=== PATIENT | female | born 1995 | race African-American/Black ===

== ENCOUNTER 2016-12-09 20:02 | Emergency (ER) | payer SELFPAY ==
[~2016-12-09] VITALS: Ht 152.4 cm; Wt 72.6 kg
[2016-12-09] MEDS ORDERED: LIDO:MAALOX:DONNATAL 1:1:1 15 ML SINGLE DOSE SWSW ONE (21:00)
[2016-12-09] MEDS ORDERED: ONDANSETRON PF 4 MG/2 ML VIAL. IV ONE (21:00)
[2016-12-09] MEDS ORDERED: IV NORMAL SALINE 1000ML BAG 1,000 ML IV ONE (21:00)
[2016-12-09 21:03] LABS: BASO # 0.1 x10^3/uL (0.0-0.2); BASO % 1 % (0-3); EOS % 2 % (0-3); HEMATOCRIT 37.5 % (36.0-47.0); HEMOGLOBIN 12.5 g/dL (12.0-15.5); LYMPH # 4.1 x10^3/uL (1.0-4.8); LYMPH % 32 % (24-48); MEAN CORPUSCULAR HEMOGLOBIN 24 pg (25-35); MEAN CORPUSCULAR HGB CONC 33 g/dL (31-37); MEAN CORPUSCULAR VOLUME 73 fL (79-100); MONO % 6 % (0-9); NEUT % 60 % (31-73); PLATELET COUNT 434 x10^3/uL (140-400); RED BLOOD COUNT 5.16 x10^6/uL (3.50-5.40); RED CELL DISTRIBUTION WIDTH 15.9 % (11.5-14.5); WHITE BLOOD COUNT 13.1 x10^3/uL (4.0-11.0)
[2016-12-09 21:04] LABS: BILIRUBIN,URINE NEGATIVE (NEG); GLUCOSE,URINE NEGATIVE (NEG); NITRITE,URINE NEGATIVE (NEG); PROTEIN,URINE NEGATIVE (NEG-TRACE); UROBILINOGEN,URINE 0.2 mg/dL (0.2 mg/dL)
[2016-12-09 21:11] LABS: BARBITURATES NEG (NEG); BENZODIAZEPINES NEG (NEG); CANNABINOIDS NEG (NEG); COCAINE NEG (NEG); METHADONE NEG (NEG); OPIATES NEG (NEG); PHENCYCLIDINE NEG (NEG); RBC,URINE 0 /HPF (0-2)
[2016-12-09 21:12] LABS: BACTERIA,URINE MODERATE /HPF (0-FEW); SQUAMOUS EPITHELIAL CELL,UR MANY /LPF
[2016-12-09 21:14] LABS: INR 1.1 (0.8-1.1); PROTHROMBIN TIME PATIENT 13.3 SEC (11.7-14.0)
[2016-12-09 21:25] LABS: CALCIUM 9.8 mg/dL (8.5-10.1); CREATININE 0.7 mg/dL (0.6-1.0); GFR 129.1; POTASSIUM 3.4 mmol/L (3.5-5.1)
[2016-12-09 21:29] LABS: ALBUMIN 3.9 g/dL (3.4-5.0); ALBUMIN/GLOBULIN RATIO 0.9 (1.0-1.7); MAGNESIUM 1.9 mg/dL (1.8-2.4); TOTAL BILIRUBIN 0.3 mg/dL (0.2-1.0); TOTAL PROTEIN 8.3 g/dL (6.4-8.2)
--- NOTE | 2016-12-09 21:45 | PHYS DOC ---
Past Medical History Past Medical History: No Pertinent History Alcohol Use: None Drug Use: None Adult General Chief Complaint Chief Complaint: DIZZY/LIGHT HEADED [facility] HPI Patient is a 21 year old female presenting to the emergency department for evaluation of dizziness and nausea vomiting chest pain. She says the dizziness is that she feels as if she may pass out and that the chest pain is burning in the center of her chest that started after eating sausage and pancakes. She says it is getting better but she still has some chest pain. She appears quite anxious that she is tachycardic and hyperventilating. She denies any prior cardiac history and no prior DVT or PE. She denies smoking alcohol or drug abuse. She is in no obvious distress with normal vital signs other than her tachycardia. Review of Systems Review of Systems Constitutional: Denies fever or chills [] Respiratory: Denies cough. + shortness of breath [] Cardiovascular: No additional information not addressed in HPI [] GI: Denies abdominal pain. + nausea, vomiting. No bloody stools or diarrhea [] : Denies dysuria or hematuria [] Musculoskeletal: Denies back pain or joint pain [] Integument: Denies rash or skin lesions [] Neurologic: Denies headache, focal weakness or sensory changes [] Current Medications Current Medications Current Medications Medications (Trade) Dose Ordered Sig/[facility] Start Time Stop Time Status Last Admin Dose Admin Multi-Ingredient Mouthwash/Gargle (Gi Cocktail Single Dose) 15 ml 1X ONCE 12/09/16 21:00 12/09/16 21:01 DC 12/09/16 21:05 15 ML Ondansetron HCl (Zofran) 4 mg 1X ONCE 12/09/16 21:00 12/09/16 21:01 DC 12/09/16 21:05 4 MG Sodium Chloride 1,000 ml @ 1,000 mls/hr 1X ONCE 12/09/16 21:00 12/09/16 21:59 DC 12/09/16 21:05 1,000 MLS/HR Allergies Allergies Allergies Coded Allergies Type Severity Reaction Last Updated Verified No Known Drug Allergies 12/09/16 No Physical Exam Physical Exam Constitutional: Well developed, well nourished, no acute distress, non-toxic appearance. [] HENT: Normocephalic, atraumatic, bilateral external ears normal, oropharynx moist, no oral exudates, nose normal. [] Eyes: PERRLA, EOMI, conjunctiva normal, no discharge. [] Neck: Normal range of motion, no tenderness, supple, no stridor. [] Cardiovascular:Heart rate regular rhythm but tachycardic, no murmur [] Lungs & Thorax: Bilateral breath sounds clear to auscultation [] Abdomen: Bowel sounds normal, soft, no tenderness, no masses, no pulsatile masses. [] Skin: Warm, dry, no erythema, no rash. [] Back: No tenderness, no CVA tenderness. [] Extremities: No tenderness, no cyanosis, no clubbing, ROM intact, no edema. [] Neurologic: Alert and oriented X 3, normal motor function, normal sensory function, no focal deficits noted. [] Current Patient Data Vital Signs Vital Signs Date Time Temp Pulse Resp B/P (MAP) Pulse Ox O2 Delivery O2 Flow Rate FiO2 12/09/16 20:24 98.3 136 21 111/65 (80) 100 Room Air 98.3 Lab Values Laboratory Tests Test 12/09/16 19:45 12/09/16 20:22 12/09/16 20:35 POC Urine HCG, Qualitative Hcg negative (Negative) White Blood Count 13.1 x10^3/uL (4.0-11.0) H Red Blood Count 5.16 x10^6/uL (3.50-5.40) Hemoglobin 12.5 g/dL (12.0-15.5) Hematocrit 37.5 % (36.0-47.0) Mean Corpuscular Volume 73 fL (79-100) L Mean Corpuscular Hemoglobin 24 pg (25-35) L Mean Corpuscular Hemoglobin Concent 33 g/dL (31-37) Red Cell Distribution Width 15.9 % (11.5-14.5) H Platelet Count 434 x10^3/uL (140-400) H Neutrophils (%) (Auto) 60 % (31-73) Lymphocytes (%) (Auto) 32 % (24-48) Monocytes (%) (Auto) 6 % (0-9) Eosinophils (%) (Auto) 2 % (0-3) Basophils (%) (Auto) 1 % (0-3) Neutrophils # (Auto) 7.8 x10^3uL (1.8-7.7) H Lymphocytes # (Auto) 4.1 x10^3/uL (1.0-4.8) Monocytes # (Auto) 0.8 x10^3/uL (0.0-1.1) Eosinophils # (Auto) 0.2 x10^3/uL (0.0-0.7) Basophils # (Auto) 0.1 x10^3/uL (0.0-0.2) Prothrombin Time 13.3 SEC (11.7-14.0) Prothrombin Time INR 1.1 (0.8-1.1) PTT 33 SEC (24-38) D-Dimer (Linsey) < 0.27 ug/mlFEU Sodium Level 137 mmol/L (136-145) Potassium Level 3.4 mmol/L (3.5-5.1) L Chloride Level 102 mmol/L (98-107) Carbon Dioxide Level 24 mmol/L (21-32) Anion Gap 11 (6-14) Blood Urea Nitrogen 7 mg/dL (7-20) Creatinine 0.7 mg/dL (0.6-1.0) Estimated GFR (Cockcroft-Gault) 129.1 BUN/Creatinine Ratio 10 (6-20) Glucose Level 98 mg/dL (70-99) Calcium Level 9.8 mg/dL (8.5-10.1) Magnesium Level 1.9 mg/dL (1.8-2.4) Total Bilirubin 0.3 mg/dL (0.2-1.0) Aspartate Amino Transferase (AST) 16 U/L (15-37) Alanine Aminotransferase (ALT) 25 U/L (14-59) Alkaline Phosphatase 55 U/L (46-116) Creatine Kinase 93 U/L (26-192) Troponin I Quantitative < 0.017 ng/mL (0.000-0.055) HU-Xqx-P-Type Natriuretic Peptide 21 pg/mL (0-124) Total Protein 8.3 g/dL (6.4-8.2) H Albumin 3.9 g/dL (3.4-5.0) Albumin/Globulin Ratio 0.9 (1.0-1.7) L Lipase 126 U/L (73-393) Thyroid Stimulating Hormone (TSH) 2.700 uIU/mL (0.358-3.74) Ethyl Alcohol Level < 10 mg/dL (0-10) Urine Collection Type Unknown Urine Color Straw Urine Clarity Cloudy Urine pH 7.0 Urine Specific [place] 1.010 Urine Protein Negative mg/dL (NEG-TRACE) Urine Glucose (UA) Negative mg/dL (NEG) Urine Ketones (Stick) Negative mg/dL (NEG) Urine Blood Negative (NEG) Urine Nitrite Negative (NEG) Urine Bilirubin Negative (NEG) Urine Urobilinogen Dipstick 0.2 mg/dL (0.2 mg/dL) Urine Leukocyte Esterase Moderate (NEG) Urine RBC 0 /HPF (0-2) Urine WBC 5-10 /HPF (0-4) Urine Squamous Epithelial Cells Many /LPF Urine Bacteria Moderate /HPF (0-FEW) Urine Opiates Screen Neg (NEG) Urine Methadone Screen Neg (NEG) Urine Barbiturates Neg (NEG) Urine Phencyclidine Screen Neg (NEG) Urine Amphetamine/Methamphetamine Neg (NEG) Urine Benzodiazepines Screen Neg (NEG) Urine Cocaine Screen Neg (NEG) Urine Cannabinoids Screen Neg (NEG) Urine Ethyl Alcohol Neg (NEG) Laboratory Tests 12/09/16 20:22 Laboratory Tests 12/09/16 20:22 EKG EKG Sinus rhythm at 97 beats per minutes with normal axis no deviation no obvious ST elevation or depression and normal T waves. Radiology/Procedures Radiology/Procedures Normal mediastinum and normal heart size no obvious free air pneumothorax or opacity Course & Med Decision Making Course & Med Decision Making Patient will get screening labs treat symptoms and then reassess. Patient is feeling much better after symptomatically treatment here and she no longer has chest pain. She has a heart score equal to 0 and her EKG is completely normal. Given patient appears well with normal vital signs benign physical exam and workup she'll be discharged with supportive treatment and told to follow with a primary care provider and come back to the ER sooner with any worsening pain fevers vomiting or other general concerns. Patient verbalized understanding of the above instructions. Dragon Disclaimer Dragon Disclaimer This electronic medical record was generated, in whole or in part, using a voice recognition dictation system. Departure Departure Impression: Primary Impression: Chest pain Additional Impression: Nausea & vomiting Disposition: 01 HOME, SELF-CARE Condition: GOOD Referrals: URBANO SAENZ MD Patient Instructions: Gastritis, Adult Additional Instructions: Take Prilosec daily for her symptoms and he can use Tums and Maalox for breakthrough pain. Scripts Omeprazole Magnesium (PRILOSEC OTC) 20 Mg Tablet.dr 1 TAB PO DAILY, #30 TAB 2 Refills Prov: ANGEL RODRIGUEZ DO 12/09/16 Problem Qualifiers Primary Impression: Chest pain Chest pain type: unspecified Qualified Codes: R07.9 - Chest pain, unspecified ANGEL RODRIGUEZ DO Dec 09, 2016 21:45
[2016-12-09] MEDS ORDERED: OMEP20TA63 PO (22:22)
[2016-12-09 22:30] VITALS: BP 164/62
--- NOTE | 2016-12-10 07:37 | RAD ---
Portable chest, 12/09/2016: History: Chest pain The heart size and pulmonary vascularity are normal. A hazy density at the right cardiophrenic angle level is probably due to a prominent epicardial fat pad. No acute infiltrate is seen. There is no evidence of pleural fluid. IMPRESSION: No acute cardiopulmonary abnormality is detected.
--- NOTE | 2016-12-10 11:15 | EKG ---
[facility] [address] [place] [address] Test Date: 2016-12-09 Test Time: 20:47:20 Pat Name: AVILA LAWRENCE Department: Room: Gender: F [employer] Electric[employer]: : 1995 Requested By: ANGEL RODRIGUEZ Order Number: [id number] Reading MD: Tom Puentes Measurements Intervals [place] Rate: 97 P: 52 WA: 132 QRS: 60 QRSD: 70 T: 6 QT: 328 QTc: 421 Interpretive Statements SINUS RHYTHM Electronically Signed On 12-10-2016 11:15:01 CDT by Tom Puentes
== END 2016-12-09 22:32 | disposition home or self-care (01) ==
LOC: ER 20:02
DX: R07.9 Chest pain, unspecified (principal); R42 Dizziness and giddiness; R11.2 Nausea with vomiting, unspecified
CPT/HCPCS: 36415; 71010; 80053; 80305; 81001; 81025; 82550; 83690; 83735; 83880; 84443; 84484; 85027; 85379; 85610; 85730; 87086; 93005; 96361; 96374; 99285; J2405; J7030; G0480; G0481

== ENCOUNTER 2018-09-16 12:00 | Emergency (ER) | payer SELFPAY ==
[~2018-09-16] VITALS: Ht 152.4 cm; Wt 68.0 kg
[~2018-09-16 12:00] MED LIST: OMEP20TA63 PO
[2018-09-16 12:05] VITALS: BP 119/57
--- NOTE | 2018-09-16 13:44 | PHYS DOC ---
Past Medical History Past Medical History: No Pertinent History Alcohol Use: None Drug Use: None Adult General Chief Complaint Chief Complaint: BACK PAIN - NO INJURY HPI HPI Patient is a 23 year old female who presents to the emergency room with complaints of sore throat for the last week. Patient also complains of backaches for the last two weeks. She denies any known injury, Review of Systems Review of Systems Constitutional: Denies fever or chills [] Eyes: Denies change in visual acuity, redness, or eye pain [] HENT: denies ear pain, reports nasal congestion sore throat Respiratory: Denies cough or shortness of breath [] Cardiovascular: No additional information not addressed in HPI [] GI: Denies abdominal pain, nausea, vomiting, or diarrhea [] : Denies dysuria or hematuria [] Musculoskeletal: reports generalized back pain denies any injury Integument: Denies rash or skin lesions [] Neurologic: Denies headache, focal weakness or sensory changes [] Current Medications Current Medications Current Medications Medications (Trade) Dose Ordered Sig/David Start Time Stop Time Status Last Admin Dose Admin Dexamethasone Sodium Phosphate (Decadron) 10 mg 1X ONCE 09/16/18 14:30 09/16/18 14:30 DC 09/16/18 14:08 10 MG Allergies Allergies Allergies Coded Allergies Type Severity Reaction Last Updated Verified No Known Drug Allergies 12/09/16 No Physical Exam Physical Exam Constitutional: Well developed, well nourished, no acute distress, non-toxic appearance. [] HENT: Normocephalic, atraumatic, bilateral external ears normal, oropharynx mo ist, 2+ tonsils bilat, erythema posterior pharynx, foul odor noted to breath, no oral exudates, nose normal. [] Eyes: conjunctiva normal, no discharge. [] Neck: Normal range of motion, no tenderness, supple, no stridor. [] Cardiovascular:Heart rate regular rhythm Lungs & Thorax: Bilateral breath sounds clear to auscultation, retractions [] Skin: Warm, dry, no erythema, no rash. [] Back: No bony TTP Extremities: No cyanosis, ROM intact, no edema, no deformities. Neurologic: Alert and oriented X 3, no focal deficits noted. [] Psychologic: Affect normal, judgement normal, mood normal. [] Current Patient Data Vital Signs Lab Values Laboratory Tests Test 09/16/18 12:09 Group A Streptococcus Rapid Negative (NEGATIVE) Microbiology 09/16/18 Throat Culture - Final, Complete 09/16/18 - Final, Complete 09/16/18 - Final, Complete EKG EKG [] Radiology/Procedures Radiology/Procedures [] Course & Med Decision Making Course & Med Decision Making Pertinent Labs and Imaging studies reviewed. (See chart for details) [] Dragon Disclaimer Dragon Disclaimer This electronic medical record was generated, in whole or in part, using a voice recognition dictation system. Departure Departure Impression: Primary Impression: URI with cough and congestion Additional Impression: Pharyngitis Disposition: HOME, SELF-CARE Condition: STABLE Referrals: NO PCP (PCP) Patient Instructions: Upper Respiratory Infection, Adult, [id number] Additional Instructions: Warm salt water gargles as needed for throat discomfort. Recommend use of a Cool mist humidifier in room at bedtime. Alternate Tylenol or ibuprofen as needed for pain/fever. Increase clear fluids. Avoid airway triggers such as smoke, fragrance, dust, and pollen. May take [id number] cough suppressants as needed. Follow-up with your primary care doctor symptoms persist, return to the ER symptoms worsen. Problem Qualifiers Additional Impression: Pharyngitis Pharyngitis/tonsillitis etiology: unspecified etiology Qualified Codes: J02.9 - Acute pharyngitis, unspecified IVORY CHAIDEZ APRN Sep 16, 2018 13:44
[2018-09-16] MEDS ORDERED: DEXAMETHASONE SOD PHOS 20 MG/5 ML VIAL. PO ONE (14:30)
== END 2018-09-16 14:10 | disposition home or self-care (01) ==
LOC: ER 12:00
DX: J02.9 Acute pharyngitis, unspecified (principal)
CPT/HCPCS: 87070; 87880; 99283; J1100

== ENCOUNTER 2018-12-09 21:25 | Emergency (ER) | payer SELFPAY ==
[~2018-12-09] VITALS: Ht 149.9 cm; Wt 75.7 kg
[2018-12-09 21:35] VITALS: BP 112/69
[2018-12-09 21:44] LABS: BASO # 0.1 x10^3/uL (0.0-0.2); BASO % 1 % (0-3); EOS # 0.1 x10^3/uL (0.0-0.7); EOS % 1 % (0-3); HEMATOCRIT 35.8 % (36.0-47.0); HEMOGLOBIN 11.5 g/dL (12.0-15.5); LYMPH # 2.7 x10^3/uL (1.0-4.8); LYMPH % 24 % (24-48); MEAN CORPUSCULAR HEMOGLOBIN 24 pg (25-35); MEAN CORPUSCULAR HGB CONC 32 g/dL (31-37); MEAN CORPUSCULAR VOLUME 73 fL (79-100); MONO # 0.9 x10^3/uL (0.0-1.1); MONO % 8 % (0-9); NEUT # 7.7 x10^3uL (1.8-7.7); NEUT % 67 % (31-73); PLATELET COUNT 432 x10^3/uL (140-400); RED BLOOD COUNT 4.87 x10^6/uL (3.50-5.40); RED CELL DISTRIBUTION WIDTH 15.5 % (11.5-14.5); WHITE BLOOD COUNT 11.6 x10^3/uL (4.0-11.0)
--- NOTE | 2018-12-09 21:44 | PHYS DOC ---
Past Medical History Past Medical History: No Pertinent History Past Surgical History: No Surgical History Additional Information: Nonsmoker Alcohol Use: None Drug Use: None Adult General Chief Complaint Chief Complaint: ABDOMINAL PAIN HPI HPI 23 y/o female presents with report of diffuse abdominal pain with associated nausea and vomiting which started today. Denies fever/chills. Denies known sick contacts. Denies dysuria. Reports "unsure" if she might be . Reports last menstrual period was last week of October. Denies dysuria or hematuria. Review of Systems Review of Systems Constitutional: Denies fever or chills Eyes: Denies redness or eye pain HENT: Denies nasal congestion or sore throat Respiratory: Denies cough or shortness of breath Cardiovascular: Denies chest pain or palpitations GI: Reports abdominal pain, nausea, and vomiting : Denies dysuria or hematuria Musculoskeletal: Denies back pain or joint pain Integument: Denies rash or skin lesions Neurologic: Denies headache, focal weakness or sensory changes Complete systems were reviewed and found to be within normal limits, except as documented in this note. Current Medications Current Medications Current Medications Medications (Trade) Dose Ordered Sig/David Start Time Stop Time Status Last Admin Dose Admin Famotidine (Pepcid Vial) 20 mg 1X ONCE 12/09/18 21:45 12/09/18 21:46 DC 12/09/18 21:51 20 MG Info (CONTRAST GIVEN -- Rx MONITORING) 1 each PRN DAILY PRN 12/09/18 22:30 12/11/18 22:29 Iohexol (Omnipaque 300 Mg/ml) 75 ml 1X ONCE 12/09/18 22:30 12/09/18 22:31 DC 12/09/18 22:21 75 ML Ketorolac Tromethamine (Toradol 15mg Vial) 15 mg 1X ONCE 12/09/18 21:45 12/09/18 21:46 DC 12/09/18 21:52 15 MG Ondansetron HCl (Zofran) 4 mg 1X ONCE 12/09/18 21:45 12/09/18 21:46 DC 12/09/18 21:51 4 MG Sodium Chloride 1,000 ml @ 1,000 mls/hr 1X ONCE 12/09/18 21:45 12/09/18 22:44 DC 12/09/18 21:51 1,000 MLS/HR Allergies Allergies Allergies Coded Allergies Type Severity Reaction Last Updated Verified No Known Drug Allergies 12/09/16 No Physical Exam Physical Exam Constitutional: Well developed, well nourished, no acute distress, non-toxic ap pearance HENT: Normocephalic, atraumatic, oropharynx moist Eyes: Conjunctiva normal, no discharge Neck: Normal range of motion, no tenderness, supple Cardiovascular: Heart rate normal, regular rhythm Lungs & Thorax: Bilateral breath sounds clear to auscultation, no wheezing Abdomen: Soft, diffuse abdominal pain, voluntary guarding Skin: Warm, dry, no erythema, no rash Back: No tenderness, no CVA tenderness Extremities: No tenderness, ROM intact, no edema Neurologic: Alert and oriented X 3, no focal deficits noted Psychologic: Affect normal, judgement normal Current Patient Data Vital Signs Vital Signs Date Time Temp Pulse Resp B/P (MAP) Pulse Ox O2 Delivery O2 Flow Rate FiO2 12/09/18 21:35 98.2 110 22 112/69 (83) 100 Room Air 98.2 Lab Values Laboratory Tests Test 12/09/18 21:35 12/09/18 21:40 White Blood Count 11.6 x10^3/uL (4.0-11.0) H Red Blood Count 4.87 x10^6/uL (3.50-5.40) Hemoglobin 11.5 g/dL (12.0-15.5) L Hematocrit 35.8 % (36.0-47.0) L Mean Corpuscular Volume 73 fL (79-100) L Mean Corpuscular Hemoglobin 24 pg (25-35) L Mean Corpuscular Hemoglobin Concent 32 g/dL (31-37) Red Cell Distribution Width 15.5 % (11.5-14.5) H Platelet Count 432 x10^3/uL (140-400) H Neutrophils (%) (Auto) 67 % (31-73) Lymphocytes (%) (Auto) 24 % (24-48) Monocytes (%) (Auto) 8 % (0-9) Eosinophils (%) (Auto) 1 % (0-3) Basophils (%) (Auto) 1 % (0-3) Neutrophils # (Auto) 7.7 x10^3uL (1.8-7.7) Lymphocytes # (Auto) 2.7 x10^3/uL (1.0-4.8) Monocytes # (Auto) 0.9 x10^3/uL (0.0-1.1) Eosinophils # (Auto) 0.1 x10^3/uL (0.0-0.7) Basophils # (Auto) 0.1 x10^3/uL (0.0-0.2) Urine Collection Type Unknown Urine Color Yellow Urine Clarity Clear Urine pH 7.5 Urine Specific [place] 1.015 Urine Protein Negative mg/dL (NEG-TRACE) Urine Glucose (UA) Negative mg/dL (NEG) Urine Ketones (Stick) Negative mg/dL (NEG) Urine Blood Negative (NEG) Urine Nitrite Negative (NEG) Urine Bilirubin Negative (NEG) Urine Urobilinogen Dipstick 1.0 mg/dL (0.2 mg/dL) Urine Leukocyte Esterase Small (NEG) Urine RBC 0 /HPF (0-2) Urine WBC 5-10 /HPF (0-4) Urine Squamous Epithelial Cells Many /LPF Urine Bacteria Moderate /HPF (0-FEW) Urine Mucus Marked /LPF Urine Yeast Present /HPF Sodium Level 140 mmol/L (136-145) Potassium Level 3.8 mmol/L (3.5-5.1) Chloride Level 103 mmol/L (98-107) Carbon Dioxide Level 26 mmol/L (21-32) Anion Gap 11 (6-14) Blood Urea Nitrogen 8 mg/dL (7-20) Creatinine 0.7 mg/dL (0.6-1.0) Estimated GFR (Cockcroft-Gault) 126.6 BUN/Creatinine Ratio 11 (6-20) Glucose Level 107 mg/dL (70-99) H Calcium Level 9.0 mg/dL (8.5-10.1) Magnesium Level 2.0 mg/dL (1.8-2.4) Total Bilirubin 0.6 mg/dL (0.2-1.0) Aspartate Amino Transferase (AST) 22 U/L (15-37) Alanine Aminotransferase (ALT) 25 U/L (14-59) Alkaline Phosphatase 70 U/L (46-116) Total Protein 7.7 g/dL (6.4-8.2) Albumin 4.0 g/dL (3.4-5.0) Albumin/Globulin Ratio 1.1 (1.0-1.7) Lipase 125 U/L (73-393) POC Urine HCG, Qualitative Hcg negative (Negative) Laboratory Tests 12/09/18 21:35 Laboratory Tests 12/09/18 21:35 EKG EKG [] Radiology/Procedures Radiology/Procedures PROCEDURE: CT ABD PELV W/ IV CONTRST ONLY CT ABD PELV W/ IV CONTRST ONLY Indication: Abdominal pain, nausea and vomiting Technique: Postcontrast CT imaging was performed of the abdomen pelvis, multiplanar reconstruction images submitted. One or more of the following individualized dose reduction techniques were utilized for this examination: 1. Automated exposure control 2. Adjustment of the mA and/or kV according to patient size 3. Use of iterative reconstruction technique. Comparison: None Findings: There is no abnormality of the limited visualized lung bases. No focal abnormality is identified of the liver or spleen. Both kidneys enhance, no hydronephrosis. There is no adrenal nodularity. Gallbladder is present without obvious intraluminal abnormality by CT. There is mild dependent free fluid in the pelvis. Accurate evaluation of bowel is limited without oral contrast. Appendix cannot be confidently identified. No free air is identified. Bowel is not significantly dilated. There is small umbilical fascial defect with small bowel at the posterior margin. There is a hypodense lesion of the left adnexa about 2.1 cm, some other heterogeneity of the parametrial regions. There may be some fluid in the endometrial cavity. IMPRESSION: 1. Appendix cannot be confidently identified to confidently exclude acute appendicitis by imaging. There is mild nonspecific free fluid in the pelvis. There is a hypodense lesion of the left adnexa probably a cyst. There is another nonspecific heterogeneity of the parametrial regions. There is also likely some fluid in the endometrial cavity. Electronically signed by: Franklyn Delatorre MD (12/09/2018 11:42 PM) [facility] Course & Med Decision Making Course & Med Decision Making Pertinent Labs and Imaging studies reviewed. (See chart for details) Patient present with diffuse abdominal pain with associated nausea and vomiting. Voluntary guarding noted. IVF hydration given. Labs obtained and posted to chart. UA with signs of contamination. Yeast noted. Diflucan provided. CT abd/pelvis without acute process. Appendix not definitively identified. Patient does not have clinical signs of appendicitis. Pain/nausea addressed with interval improvement.. Patient stable for discharge with outpatient follow-up with PCP. Discussed findings and plan with patient and family, who acknowledge understanding and agreement. Liana Disclaimer Dragon Disclaimer This electronic medical record was generated, in whole or in part, using a voice recognition dictation system. Departure Departure Impression: Primary Impression: Abdominal pain Additional Impressions: Nausea & vomiting Yeast cystitis Disposition: 01 HOME, SELF-CARE Condition: STABLE Referrals: NO PCP (PCP) Patient Instructions: Abdominal Pain (Nonspecific), Mattie Infection, Adult, Nausea and Vomiting, [id number] Scripts Hyoscyamine Sulfate (LEVSIN-SL) 0.125 Mg Tab.subl 1-2 TAB SL PRN Q4HRS PRN for PAIN, #20 TAB Prov: LAZARO CARPENTER DO 12/10/18 Famotidine (PEPCID) 20 Mg Tablet 20 MG PO BID, #14 TAB Prov: LAZARO CARPENTER DO 12/10/18 Ondansetron (ONDANSETRON ODT) 4 Mg Tab.rapdis 1 TAB PO PRN Q6-8HRS PRN for NAUSEA, #16 TAB Prov: LAZARO CARPETNER DO 12/10/18 Problem Qualifiers Primary Impression: Abdominal pain Abdominal location: generalized Qualified Codes: R10.84 - Generalized abdominal pain Additional Impressions: Nausea & vomiting Vomiting type: unspecified Vomiting Intractability: non-intractable Qualified Codes: R11.2 - Nausea with vomiting, unspecified LAZARO CARPENTER DO Dec 09, 2018 21:44
[2018-12-09] MEDS ORDERED: FAMOTIDINE 20 MG/2 ML VIAL IVP ONE (21:45)
[2018-12-09] MEDS ORDERED: IV NORMAL SALINE 1000ML BAG 1,000 ML IV ONE (21:45)
[2018-12-09] MEDS ORDERED: ONDANSETRON PF 4 MG/2 ML VIAL. IV ONE (21:45)
[2018-12-09] MEDS ORDERED: KETOROLAC 15 MG/ML VIAL. IV ONE (21:45)
[2018-12-09 21:49] LABS: BILIRUBIN,URINE NEGATIVE (NEG); CLARITY,URINE CLEAR; COLOR,URINE YELLOW; NITRITE,URINE NEGATIVE (NEG); PH,URINE 7.5; PROTEIN,URINE NEGATIVE (NEG-TRACE)
[2018-12-09 21:56] LABS: CREATININE 0.7 mg/dL (0.6-1.0); GFR 126.6; POTASSIUM 3.8 mmol/L (3.5-5.1)
[2018-12-09 21:59] LABS: BACTERIA,URINE MODERATE /HPF (0-FEW); RBC,URINE 0 /HPF (0-2); SQUAMOUS EPITHELIAL CELL,UR MANY /LPF
[2018-12-09 22:00] LABS: ALBUMIN/GLOBULIN RATIO 1.1 (1.0-1.7); TOTAL BILIRUBIN 0.6 mg/dL (0.2-1.0); TOTAL PROTEIN 7.7 g/dL (6.4-8.2); YEAST,URINE PRESENT /HPF
[2018-12-09] MEDS ORDERED: CONTRAST GIVEN. MC PRN (22:30)
[2018-12-09] MEDS ORDERED: IOHEXOL 300 MG/ML 100ML VIAL. IV ONE (22:30)
--- NOTE | 2018-12-09 23:45 | RAD ---
CT ABD PELV W/ IV CONTRST ONLY Indication: Abdominal pain, nausea and vomiting Technique: Postcontrast CT imaging was performed of the abdomen pelvis, multiplanar reconstruction images submitted. One or more of the following individualized dose reduction techniques were utilized for this examination: 1. Automated exposure control 2. Adjustment of the mA and/or kV according to patient size 3. Use of iterative reconstruction technique. Comparison: None Findings: There is no abnormality of the limited visualized lung bases. No focal abnormality is identified of the liver or spleen. Both kidneys enhance, no hydronephrosis. There is no adrenal nodularity. Gallbladder is present without obvious intraluminal abnormality by CT. There is mild dependent free fluid in the pelvis. Accurate evaluation of bowel is limited without oral contrast. Appendix cannot be confidently identified. No free air is identified. Bowel is not significantly dilated. There is small umbilical fascial defect with small bowel at the posterior margin. There is a hypodense lesion of the left adnexa about 2.1 cm, some other heterogeneity of the parametrial regions. There may be some fluid in the endometrial cavity. IMPRESSION: 1. Appendix cannot be confidently identified to confidently exclude acute appendicitis by imaging. There is mild nonspecific free fluid in the pelvis. There is a hypodense lesion of the left adnexa probably a cyst. There is another nonspecific heterogeneity of the parametrial regions. There is also likely some fluid in the endometrial cavity. Electronically signed by: Franklyn Delatorre MD (12/09/2018 11:42 PM) [facility]
[2018-12-10] MEDS ORDERED: HYOS0.1265 SL
[2018-12-10] MEDS ORDERED: ONDA4TAB12 PO
[2018-12-10] MEDS ORDERED: FAMO-63 PO
[2018-12-10] MEDS ORDERED: ONDANSETRON PF 4 MG/2 ML VIAL. IV ONE (00:15)
[2018-12-10] MEDS ORDERED: FLUCONAZOLE 100 MG TABLET. PO ONE (00:15)
== END 2018-12-10 00:17 | disposition home or self-care (01) ==
LOC: ER 21:25
DX: R10.84 Generalized abdominal pain (principal); R11.2 Nausea with vomiting, unspecified; N30.80 Other cystitis without hematuria
CPT/HCPCS: 36415; 74177; 80053; 81001; 81025; 83690; 83735; 85025; 87086; 96361; 96374; 96375; 99285; J1885; J2405; J3490; J7030; Q9967

== ENCOUNTER 2019-07-12 13:19 | Emergency (ER) | payer SELFPAY ==
[~2019-07-12] VITALS: Ht 149.9 cm; Wt 78.9 kg
[~2019-07-12 13:19] MED LIST changes: +FAMO-63 PO; +HYOS0.1265 SL; +ONDA4TAB12 PO
[2019-07-12 14:00] VITALS: BP 136/77
--- NOTE | 2019-07-12 14:16 | PHYS DOC ---
Past Medical History Past Medical History: No Pertinent History Past Surgical History: No Surgical History Alcohol Use: None Drug Use: None Adult General Chief Complaint Chief Complaint: SORE THROAT HPI HPI Patient is a 33 year old male who presents with fever, loss of appetite, body aches, sore throat, congestion, cough that started on Wednesday. Patient has been able to drink water at home. Patient has been using Tylenol for fever control. Complete ROS were reviewed and found to be within normal limits, except as documented in the HPI Allergies Allergies Allergies Coded Allergies Type Severity Reaction Last Updated Verified No Known Drug Allergies 12/09/16 No Physical Exam Physical Exam Constitutional: Well developed, well nourished, no acute distress, non-toxic appearance. [] HENT: Normocephalic, atraumatic, bilateral external ears normal, bilateral tympanic membranes are pearly jiang, oropharynx moist, no oral exudates, nose turbinates are inflamed. Eyes: PERRLA, EOMI, conjunctiva normal, no discharge. [] Neck: Normal range of motion, no tenderness, supple, no stridor. [] Cardiovascular:Heart rate regular rhythm, no murmur [] Lungs & Thorax: Bilateral breath sounds clear to auscultation [] Abdomen: Bowel sounds normal, soft, no tenderness, no masses, no pulsatile masses. [] Skin: Warm, dry, no erythema, no rash. [] Neurologic: Alert and oriented X 3, normal motor function, normal sensory function, no focal deficits noted. [] Psychologic: Affect normal, judgement normal, mood normal. [] EKG EKG [] Radiology/Procedures Radiology/Procedures [] Course & Med Decision Making Course & Med Decision Making Pertinent Labs and Imaging studies reviewed. (See chart for details) A medical screening exam was performed on this patient and the patient does not appear to be having a medical emergency. Her symptoms are not of sufficient severity and within reasonable medical probability it is unlikely the absence of immediate medical attention would result in placing the health of the individual (or, with respect to a woman, the health of the woman or her unborn child) in serious jeopardy, serious impairment to bodily functions, or serious dysfunction of any bodily organ or part. If , the patient is not in labor The patient appears to have the Flu clinically. Discussed with patient the importance of drinking plenty of fluids. I also discussed the importance of rest. It was discussed with the patient that she is contagious and to stay away from others until it has been a week since the start of her symptoms. Discussed with the patient that she can take Zyrtec per label instructions for runny nose. Also discussed the proper control of fever by rotating Tylenol and Ibuprofen at home. Dragon Disclaimer Dragon Disclaimer This electronic medical record was generated, in whole or in part, using a voice recognition dictation system. Departure Departure Impression: Primary Impression: Viral syndrome Disposition: HOME, SELF-CARE Condition: STABLE Referrals: NO PCP (PCP) Patient Instructions: Viral Syndrome Additional Instructions: Thank you for visiting [facility]. We appreciate you trusting us with your care. If any additional problems come up don't hesitate to return to visit us. Please follow up with your primary care provider so they can plan additional care if needed and know about the problem that you had. If symptoms worsen come back to the Emergency Department. Any concerning symptoms that start such as chest pain, shortness of air, weakness or numbness on one side of the body, running high fevers or any other concerning symptoms return to the ER. Please fill your medications at any pharmacy and follow the prescription instructions. Please drink plenty of fluids. If unable to keep fluids down please return to ER. Please get Tylenol and Ibuprofen over the counter. Give each medication every 6 hours as directed by the medication labels. In order to utilize the peak of the medications stagger the medications to where the child is getting one of the medications every 3 hours. For example if you give Ibuprofen at 3 PM, you then give Tylenol at 6 PM and Ibuprofen again at 9 PM, and then Tylenol at midnight. Please get Zyrtec over the counter and take per label instructions for runny nose. LAZARO TORREZ APRN Jul 12, 2019 14:16
== END 2019-07-12 14:15 | disposition home or self-care (01) ==
LOC: ER 13:19
DX: B34.9 Viral infection, unspecified (principal); R09.81 Nasal congestion; R05 Cough; R50.9 Fever, unspecified; R63.0 Anorexia
CPT/HCPCS: 99281

== ENCOUNTER 2020-08-25 21:04 | Emergency (ER) | payer SELFPAY ==
[~2020-08-25] VITALS: Ht 152.4 cm; Wt 70.0 kg
--- NOTE | 2020-08-25 21:30 | PHYS DOC ---
Past Medical History Past Medical History: No Pertinent History Past Surgical History: No Surgical History Smoking Status: Never Smoker Alcohol Use: None Drug Use: None General Adult EDM: Chief Complaint: MULTIPLE COMPLAINTS HPI: HPI: Patient is a 25 year old female with no past medical history presents today with chest pain. She states that she has had this chest pain in the past about 2 months ago. She states that she wore a Holter monitor for 1 month and they told her her heartbeat was irregular. She denies any atrial fibrillation. She states that [facility] did an echocardiogram of her heart and said she had some inflammation around her. She denies being put on any steroids, NSAIDs, and any prescription medicines after this echo. She states that around 7 PM tonight she noticed this chest pain returning, she states it is a tight pressure over her left anterior chest that radiates to her back. She states it is better when she lays down and worse when she takes a deep breath. She states she has tried Tums for this pain but it does not go away. 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 She states that she did not have 1 of these heart events tonight that is why she presented to the emergency department when this chest pain occurred without inciting event. Review of Systems: Review of Systems: Review of systems: Constitutional symptoms- No fever, no chills. Eyes- No Discharge, No Visual Loss Respiratory symptoms- No shortness of breath, No wheezing, No Dyspnea on Exertion Cardiovascular Systems; No Palpitations, No syncope Positive chest pain Gastrointestinal symptoms: NO abdominal pain, no nausea, no vomiting or diarrhea. Genitourinary symptoms: No dysuria. Musculoskeletal symptoms: No back pain No extremity pain. NEUROLOGICAL Symptoms: No headache, no generalized weakness; No focal Weakness Heart Score: Risk Factors: Risk Factors: DM, Current or recent (<one month) smoker, HTN, HLP, family history of CAD, obesity. Risk Scores: Score 0 - 3: 2.5% MACE over next 6 weeks - Discharge Home Score 4 - 6: 20.3% MACE over next 6 weeks - Admit for Clinical Observation Score 7 - 10: 72.7% MACE over next 6 weeks - Early Invasive Strategies Allergies: Allergies: Allergies Coded Allergies Type Severity Reaction Last Updated Verified No Known Drug Allergies 12/09/16 No Physical Exam: PE: Constitutional: Well developed, well nourished, no acute distress, non-toxic appearance. [] HENT: Normocephalic, atraumatic, bilateral external ears normal, oropharynx braden st, no oral exudates, nose normal. [] Eyes: PERRLA, EOMI, conjunctiva normal, no discharge. [] Neck: Normal range of motion, no tenderness, supple, no stridor. [] Cardiovascular:Heart rate regular rhythm, no murmur [] Lungs & Thorax: Bilateral breath sounds clear to auscultation [] Abdomen: Bowel sounds normal, soft, no tenderness, no masses, no pulsatile masses. [] Skin: Warm, dry, no erythema, no rash. [] Back: No tenderness, no CVA tenderness. [] Extremities: No tenderness, no cyanosis, no clubbing, ROM intact, no edema. [] Neurologic: Alert and oriented X 3, normal motor function, normal sensory function, no focal deficits noted. [] Psychologic: Affect normal, judgement normal, mood normal. [Depressed denies HI or SI] EKG: EKG: time 2180 rate 97 nsr no acute changes[] Radiology/Procedures: Radiology/Procedures: [] Impression: FINDINGS: The cardiomediastinal silhouette and pulmonary vessels are within normal limits. The lung and pleural spaces are clear. IMPRESSION: No acute cardiopulmonary process. Electronically signed by: Aidan Smith MD (08/25/2020 11:06 PM) [facility] Course & Med Decision Making: Course & Med Decision Making Pertinent Labs and Imaging studies reviewed. (See chart for details) [] Patient was evaluated for chief complaint. Work-up consisted of laboratory analysis radiologic imaging and EKG. Results reviewed and discussed with patient. EKG chest x-ray within normal limits. Patient was given medications for anxiety. She also received Toradol for her chest discomfort. Patient with complaint of pression due to her job. Patient was evaluated by the PET team. Patient will be referred to outpatient therapy. Patient will be discharged home with instructions to take Tylenol and ibuprofen as needed for pain. Patient will receive a prescription for anxiety. Dragon Disclaimer: Dragon Disclaimer: This electronic medical record was generated, in whole or in part, using a voice recognition dictation system. Departure Departure Impression: Primary Impression: Chest pain Additional Impressions: Anxiety Depression Disposition: 01 DC HOME SELF CARE/HOMELESS Condition: STABLE Referrals: NO PCP (PCP) Patient Instructions: Anxiety and Panic Attacks, Chest Pain (Nonspecific), Depression, Adult Scripts Alprazolam (XANAX) 0.5 Mg Tablet 0.5 MG PO PRN Q6HRS PRN for ANXIETY / AGITATION, #14 TAB 0 Refills Prov: QI SABA DO 08/25/20 QI SABA DO Aug 25, 2020 21:30
[2020-08-25] MEDS ORDERED: KETOROLAC 60 MG/2 ML VIAL. IM ONE (22:00)
[2020-08-25 22:01] LABS: BASO % 0 % (0-3); EOS # 0.2 x10^3/uL (0.0-0.7); EOS % 1 % (0-3); HEMATOCRIT 36.9 % (36.0-47.0); HEMOGLOBIN 11.7 g/dL (12.0-15.5); LYMPH # 3.3 x10^3/uL (1.0-4.8); LYMPH % 29 % (24-48); MEAN CORPUSCULAR HEMOGLOBIN 23 pg (25-35); MEAN CORPUSCULAR HGB CONC 32 g/dL (31-37); MEAN CORPUSCULAR VOLUME 72 fL (79-100); MONO # 0.9 x10^3/uL (0.0-1.1); MONO % 8 % (0-9); NEUT # 7.2 x10^3/uL (1.8-7.7); NEUT % 62 % (31-73); PLATELET COUNT 488 x10^3/uL (140-400); RED BLOOD COUNT 5.15 x10^6/uL (3.50-5.40); RED CELL DISTRIBUTION WIDTH 17.1 % (11.5-14.5); WHITE BLOOD COUNT 11.6 x10^3/uL (4.0-11.0)
[2020-08-25 22:08] LABS: CALCIUM 9.2 mg/dL (8.5-10.1); CREATININE 0.7 mg/dL (0.6-1.0); GFR 124.4; POTASSIUM 4.1 mmol/L (3.5-5.1)
[2020-08-25 22:12] LABS: ACETAMIN < 2 mcg/ml (10-30); SALIC < 2.8 mg/dL (2.8-20.0)
[2020-08-25 22:14] LABS: TOTAL BILIRUBIN 0.3 mg/dL (0.2-1.0); TOTAL PROTEIN 8.1 g/dL (6.4-8.2)
[2020-08-25 22:34] LABS: PLT ESTIMATE INCREASED (ADEQUATE)
[2020-08-25 22:35] LABS: ANISOCYTOSIS SLIGHT; HYPOCHROMIA MOD; MICROCYTOSIS MOD
--- NOTE | 2020-08-25 23:09 | RAD ---
Exam: Chest 2 views INDICATION: Shortness of breath TECHNIQUE: Frontal and lateral views of the chest Comparisons: None FINDINGS: The cardiomediastinal silhouette and pulmonary vessels are within normal limits. The lung and pleural spaces are clear. IMPRESSION: No acute cardiopulmonary process. Electronically signed by: Aidan Smith MD (08/25/2020 11:06 PM) [facility]
[2020-08-25 23:59] VITALS: BP 99/55
[2020-08-25] MEDS ORDERED: ALPR0.5T PO (23:59)
--- NOTE | 2020-08-26 01:31 | EKG ---
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
--- NOTE | 2020-08-26 04:17 | EKG ---
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
== END 2020-08-26 00:26 | disposition home or self-care (01) ==
LOC: ER 21:04
DX: R07.89 Other chest pain (principal); F32.9 Major depressive disorder, single episode, unspecified; F41.8 Other specified anxiety disorders
CPT/HCPCS: 36415; 71046; 80053; 80329; 84702; 85025; 93005; 96372; 99285; J1885; G0480

== ENCOUNTER 2020-11-20 23:33 | Emergency (ER) | payer OTHER ==
[~2020-11-20] VITALS: Ht 149.9 cm; Wt 72.0 kg
[~2020-11-20 23:33] MED LIST changes: +ALPR0.5T PO
[2020-11-20 23:38] VITALS: BP 143/67
--- NOTE | 2020-11-21 00:46 | RAD ---
Two-view right wrist HISTORY: Pain and swelling Limited 2 view AP lateral views The visualized osseous structures appear normal. IMPRESSION: No acute findings. Electronically signed by: Dangelo Herrera III, MD (11/21/2020 12:43 AM) [facility]
[2020-11-21] MEDS ORDERED: DEXAMETHASONE 4 MG TABLET PO ONE (01:15)
--- NOTE | 2020-11-21 01:15 | ED.ADGEN ---
Past Medical History Past Medical History: Other Additional Past Medical Histor: "IRREGULAR HEART" "HEART INFLAMMATION" Past Surgical History: No Surgical History Smoking Status: Never Smoker Alcohol Use: None Drug Use: None General Adult EDM: Chief Complaint: WRIST PAIN HPI: HPI: Patient is 25-year-old female presents to the emergency room complaining of right wrist pain. Patient states that earlier today she caught her wrist in a door at work. She states that she has been having constant pain since that time. She states is progressively gotten worse. She has not noticed any swelling. She states the sharp throbbing pain. She feels like it is also numb. She denies any other injuries. Review of Systems: Review of Systems: Complete ROS is negative unless otherwise documented in HPI Current Medications: Current Medications Medications (Trade) Dose Ordered Sig/David Start Time Stop Time Status Last Admin Dose Admin Dexamethasone (Decadron) 10 mg 1X ONCE 11/21/20 01:15 11/21/20 01:16 DC 11/21/20 01:25 10 MG Allergies: Allergies: Allergies Coded Allergies Type Severity Reaction Last Updated Verified No Known Drug Allergies 12/09/16 No Physical Exam: PE: General: Awake, alert, NAD. Well Nourished, well hydrated. Cooperative HEENT: Atraumatic, EOMI, PERRL, airway patent, moist oral mucosa Neck: Supple, trachea midline Respiratory: CTA bilaterally, normal effort, no wheezing/crackles CV: RRR, no murmur, cap refill <2 GI: Soft, nondistended, nontender, no masses MSK: Right wrist: 2+ radial pulse, intact range of motion, diffuse tenderness with palpation, no swelling, no bruising or erythema Skin: Warm, dry, intact Neuro: A&O x3, speech NL, sensory and motor grossly intact, no focal deficits Psych: Normal affect, normal mood, not suicidal or homicidal Current Patient Data: Labs: Laboratory Tests Test 11/20/20 23:48 POC Urine HCG, Qualitative Hcg negative (Negative) Vital Signs: Vital Signs Date Time Temp Pulse Resp B/P (MAP) Pulse Ox O2 Delivery O2 Flow Rate FiO2 11/20/20 23:38 98.5 94 20 143/67 (92) 99 Room Air 98.5 EKG: EKG: [] Heart Score: C/O Chest Pain: N/A Risk Factors: Risk Factors: DM, Current or recent (<one month) smoker, HTN, HLP, family history of CAD, obesity. Risk Scores: Score 0 - 3: 2.5% MACE over next 6 weeks - Discharge Home Score 4 - 6: 20.3% MACE over next 6 weeks - Admit for Clinical Observation Score 7 - 10: 72.7% MACE over next 6 weeks - Early Invasive Strategies Radiology/Procedures: Radiology/Procedures: [] Course & Med Decision Making: Course & Med Decision Making Pertinent Labs and Imaging studies reviewed. (See chart for details) Patient is 25-year-old female presents to the emergency room with a mild wrist injury. There is no significant swelling. Patient is able to fully move the wrist though does not want to secondary to pain. X-ray is negative. Pulses are normal. Danilo bandage was placed. Patient's test results and vitals while in the ED were fully reviewed and discussed with the patient. Patient is stable and at this time does not need admission to the hospital. We have discussed strict return precautions and the importance of following up with their Primary Care Physician. Patient stated understanding and was given an opportunity to ask any questions. Patient is in agreement with plan. Liana Disclaimer: Liana Disclaimer: This electronic medical record was generated, in whole or in part, using a voice recognition dictation system. Departure Departure Impression: Primary Impression: Wrist contusion Disposition: HOME / SELF CARE / HOMELESS Condition: STABLE Referrals: NO PCP (PCP) Patient Instructions: Wrist Pain OBI PIRES MD November 21, 2020 01:15
== END 2020-11-21 01:26 | disposition home or self-care (01) ==
LOC: ER 23:33
DX: S60.211A Contusion of right wrist, initial encounter (principal); W23.0XXA Caught, crushed, jammed, or pinched between moving objects, initial encounter; Y93.89 Activity, other specified; Y92.69 Other specified industrial and construction area as the place of occurrence of the external cause; Y99.0 Civilian activity done for income or pay
CPT/HCPCS: 73100; 81025; 99283

== ENCOUNTER 2021-04-20 23:48 | Emergency (ER) | payer SELFPAY ==
[~2021-04-20] VITALS: Ht 149.9 cm; Wt 91.9 kg
--- NOTE | 2021-04-21 00:09 | PHYS DOC ---
Past Medical History Past Medical History: Other Additional Past Medical Histor: "IRREGULAR HEART" "HEART INFLAMMATION" (SALLY ARMIJO) Past Surgical History: No Surgical History (SALLY ARMIJO) Smoking Status: Never Smoker Alcohol Use: None Drug Use: None (SALLY ARMIJO) General Adult EDM: Chief Complaint: RIB PAIN HPI: HPI: Patient is a 26 year old female who presents with posterior rib pain. 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 She reports it feels similar to prior muscle strains. Patient denies any trauma or recent physical exertion outside of work. She took 500 mg ibuprofen around 2100 without symptom relief. Patient denies chest pain, palpitations, upper extremity pain, shortness of breath, cough. Patient has no other complaints at this time. (SALLY ARMIJO) Review of Systems: Review of Systems: ROS negative except as mentioned in HPI. (SALLY ARMIJO) Heart Score: C/O Chest Pain: No (SALLY ARMIJO) Allergies: Allergies: Allergies Coded Allergies Type Severity Reaction Last Updated Verified No Known Drug Allergies 12/09/16 No (SALLY ARMIJO) Physical Exam: PE: Constitutional: Obese, well groomed, no acute distress, non-toxic appearance. Cardiovascular: Heart rate regular rhythm, no murmur. Lungs & Thorax: Bilateral breath sounds clear to auscultation. Abdomen: Bowel sounds normal, soft, no tenderness, no masses, no pulsatile masses. Skin: Warm, dry, no erythema, no rash. Back: No step-offs, no bony tenderness, paraspinal tenderness tenderness appreciated on the left side approximately T8-T10, no CVA tenderness. Extremities: No tenderness, no cyanosis, no clubbing, ROM intact, no edema. Neurologic: Alert and oriented x3, normal motor function, normal sensory function, no focal deficits noted. (SALLY ARMIJO) Current Patient Data: Labs: Laboratory Tests Test 04/21/21 00:05 Urine Test Negative (NEG) Vital Signs: Vital Signs Date Time Temp Pulse Resp B/P (MAP) Pulse Ox O2 Delivery O2 Flow Rate FiO2 04/20/21 23:50 98.6 101 18 140/85 (103) 99 Room Air 98.6 (SALLY ARMIJO) Radiology/Procedures: Radiology/Procedures: [] (SALLY ARMIJO) Radiology/Procedures: No airspace disease, infiltrates or consolidations, lung paige clear. No pneumothorax or pleural effusion. Cardiac silhouette within normal limits. No widening of mediastinum. No obvious free air seen. No obvious rib fracture seen. Impression: normal CXR. Interpreted by me, Dennis Tai D.O. (DENNIS TAI DO) Course & Med Decision Making: Course & Med Decision Making Pertinent Labs and Imaging studies reviewed. (See chart for details) Patient presentation consistent with muscle strain. Patient states she does not like to take any pills, including ibuprofen and Aleve. As an alternative, she was offered a lidocaine patch, to which she agreed. Patient care transferred to Dr. Tai at 1253, pending radiology x-ray read and symptom improvement. (SALLY ARMIJO) Course & Med Decision Making I have participated in the care of this patient and I have reviewed and agree with all pertinent clinical information above including history, exam, and recommendations. Patient was examined by me upon discharge, her x-ray was negative, she was given Toradol and Valium for pain. She is not driving home. She appears well upon discharge. She was counseled on pain treatment options for home as well as return precautions. Dennis Tai DO (DENNIS TAI DO) Liana Disclaimer: Liana Disclaimer: This electronic medical record was generated, in whole or in part, using a voice recognition dictation system. (SALLY ARMIJO) Departure Departure Impression: Primary Impression: Rib pain Disposition: 01 HOME / SELF CARE / HOMELESS Condition: STABLE Referrals: NO PCP (PCP) Patient Instructions: Rib Contusion Additional Instructions: You were seen in the emergency department and your health condition was deemed not to require admission to the hospital. It is important to realize that we can only evaluate you during the time that you are in her department. Occasionally health conditions can worsen upon leaving the emergency department. If this were to happen, please return to and allow us the opportunity to reev aluate you. It is a pleasure to take care of your health needs. Return to the ER if your symptoms worsen, do not improve, or if you develop additional symptoms that are concerning to you You were seen in the Emergency Department for rib pain - Over the counter ibuprofen or Tylenol are good medications to help reduce swelling that causes pain. - If your symptoms continue after 2-3 weeks your injury may be more significant and you should follow up with a primary care doctor Please follow up with your primary doctor. Please return to the ED if new or worrisome symptoms arise. SALLY ARMIJO Apr 21, 2021 00:09 DENNIS TAI DO Apr 21, 2021 01:44
[2021-04-21] MEDS ORDERED: LIDOCAINE (700MG/PATCH) PATCH. TD ONE ×2 (00:30→01:00)
[2021-04-21 00:42] LABS: U PREG PATIENT NEGATIVE (NEG)
[2021-04-21 00:49] VITALS: BP 131/91
[2021-04-21] MEDS ORDERED: diazePAM 5 MG TABLET PO ONE (02:00)
[2021-04-21] MEDS ORDERED: KETOROLAC 15 MG/ML VIAL. IM ONE (02:00)
--- NOTE | 2021-04-21 04:19 | RAD ---
Examination: PA view the chest with left RIBS HISTORY: History of posterior rib pain. COMPARISON: None available Findings/ impression: The cardiomediastinal silhouette grossly appears unremarkable. Mild bibasilar lung atelectasis or inf iltrates. No evidence of displaced left rib fracture. Electronically signed by: Mario Barron MD (04/21/2021 4:16 AM) [id number]
== END 2021-04-21 01:50 | disposition home or self-care (01) ==
LOC: ER 23:48
DX: R07.81 Pleurodynia (principal); E66.9 Obesity, unspecified; Z68.41 Body mass index [BMI] 40.0-44.9, adult
CPT/HCPCS: 71101; 81025; 96372; 99284; J1885

== ENCOUNTER 2021-07-21 09:51 | Emergency (ER) | payer SELFPAY ==
[~2021-07-21] VITALS: Ht 149.9 cm; Wt 75.0 kg
--- NOTE | 2021-07-21 10:17 | PHYS DOC ---
Past Medical History Past Medical History: Other Additional Past Medical Histor: "IRREGULAR HEART" "HEART INFLAMMATION" Past Surgical History: No Surgical History Smoking Status: Never Smoker Alcohol Use: None Drug Use: None General Adult EDM: Chief Complaint: MECHANICAL FALL HPI: HPI: Patient is a 26-year-old female who presents to the emergency department for right knee and left ankle pain after a fall that occurred yesterday at 2300. Patient reports that she tripped and stumbled down 6 stairs last night. She reports falling forward onto her knees. She rates her pain 10 out of 10. She states that she has an abrasion to her right knee. No treatment prior to a rrival. The pain does not radiate. She reports that she is able to bear weight but unable to ambulate. Patient denies any head injury, loss of consciousness, neck or back pain. Review of Systems: Review of Systems: Constitutional: negative unless reported in HPI Eyes: negative unless reported in HPI HENT: negative unless reported in HPI Respiratory: negative unless reported in HPI Cardiovascular: negative unless reported in HPI GI: negative unless reported in HPI : negative unless reported in HPI Musculoskeletal: negative unless reported in HPI Integument: negative unless reported in HPI Neurologic: negative unless reported in HPI Endocrine: negative unless reported in HPI Lymphatic: negative unless reported in HPI Psychiatric: negative unless reported in HPI Heart Score: C/O Chest Pain: N/A Risk Factors: Risk Factors: DM, Current or recent (<one month) smoker, HTN, HLP, family history of CAD, obesity. Risk Scores: Score 0 - 3: 2.5% MACE over next 6 weeks - Discharge Home Score 4 - 6: 20.3% MACE over next 6 weeks - Admit for Clinical Observation Score 7 - 10: 72.7% MACE over next 6 weeks - Early Invasive Strategies Allergies: Allergies: Allergies Coded Allergies Type Severity Reaction Last Updated Verified No Known Drug Allergies 07/21/21 No Physical Exam: PE: Constitutional: Well developed, well nourished, no acute distress, non-toxic appearance. [] HENT: Normocephalic, atraumatic, bilateral external ears normal, oropharynx moist, no oral exudates, nose normal. [] Eyes: PERRL, EOMI, conjunctiva normal, no discharge. [] Neck: Normal range of motion, no tenderness, supple, no stridor. [] Cardiovascular:Heart rate regular rhythm, no murmur [] Lungs & Thorax: Bilateral breath sounds clear to auscultation [] Abdomen: Bowel sounds normal, soft, no tenderness, no masses, no pulsatile masses. [] Skin: Warm, dry, no erythema, no rash. [] Back: Normal range of motion, no bony spinal tenderness Extremities: No tenderness, no cyanosis, no clubbing, ROM intact, no edema. [] Right knee: Abrasion noted to anterior aspect of right knee, no generalized, range of motion intact, neuro intact. Left ankle: Pain with palpation to lateral aspect of left ankle, mild swelling noted to lateral left ankle, no crepitus, neuro intact Neurologic: Alert and oriented X 3, normal motor function, normal sensory function, no focal deficits noted. [] Psychologic: Affect normal, judgement normal, mood normal. [] EKG: EKG: [] Radiology/Procedures: Radiology/Procedures: []PROCEDURE: KNEE RIGHT 3V EXAM: Right knee, 3 views; left ankle, 3 views. HISTORY: Fall. COMPARISON: None. FINDINGS: Right knee: 3 views of the right knee are obtained. There is no fracture, dislocation or subluxation. There is no joint effusion. Left ankle: 3 views of the left ankle are obtained. There is no acute fracture, dislocation or subluxation. There is a tiny ossicle or osseous excrescence along the inferior medial malleolus, likely developmental or the sequela of remote injury. There is lateral predominant ankle soft tissue swelling. There is no ossicular lesion. IMPRESSION: 1. Lateral left ankle soft tissue swelling. No acute fracture is seen. 2. No acute finding involving the right knee. Electronically signed by: Patrick Dias MD (07/21/2021 10:37 AM) [id number] DICTATED and SIGNED BY: PATRICK DIAS MD DATE: 07/21/21 [id number] 0 Course & Med Decision Making: Course & Med Decision Making Pertinent Labs and Imaging studies reviewed. (See chart for details) [] Patient resents emergency department following a fall with complaints of right knee and left ankle pain. Denied head injury, loc, neck/back pain. X-ray was performed that showed no acute findings. Patient's left ankle was placed in Danilo wrap. Patient educated on the rice protocol. Crutches and crutch training provided. I discussed with patient all findings and diagnostic testing as well as the need to follow-up with PCP for further evaluation and treatment or return to the ER if any new or worsening symptoms. Strict return precautions were also discussed at length. Patient voiced understanding and agreement with the plan. Patient is hemodynamically stable at the time of disposition. Dragon Disclaimer: Dragon Disclaimer: This electronic medical record was generated, in whole or in part, using a voice recognition dictation system. Departure Departure Impression: Primary Impression: Ankle sprain Qualified Codes: S93.402A - Sprain of unspecified ligament of left ankle, initial encounter Additional Impression: Knee contusion Qualified Codes: S80.01XA - Contusion of right knee, initial encounter Disposition: HOME / SELF CARE / HOMELESS Condition: GOOD Referrals: NO PCP (PCP) Patient Instructions: CAMILA - Routine Care for Injuries Additional Instructions: You were seen in the ER today for left ankle and right knee pain after a fall. X-rays performed showed no acute findings. This will likely improve over time. Your symptoms may be improved by something called the rice protocol. This is rest, ice, compression, elevation. Please follow-up when doing intense exercis es that may make the pain worse. Sometimes gentle stretching can provide relief, but be careful to injury. It is important to perform gentle range of motion exercises to prevent stiff joints and chronic pain. Use ice packs over the affected areas to help decrease your pain. For the first 24 hours you can apply ice 20 minutes on 20 minutes off for 4 times per day. Sometimes co mpression such as the use of an Danilo wrap can help with the swelling. You may also elevate the affected area to help with the swelling. Also use crutches if you cannot ambulate over the next couple of days. However, you should start to perform stretches and bear weight as there is nothing broken. Take Tylenol and ibuprofen for any pain. Keep your abrasions clean and dry. Monitor for any signs of infection which include redness, warmth, swelling or drainage. Follow- up with your primary care provider tomorrow regarding your ER visit. Return to the emergency department if you develop worsening of your pain, inability to bear weight or ambulate, decreased range of motion or decreased sensation in your extremity. GELY BAUMAN [employer]UD[employer] ADVISOR Jul 21, 2021 10:17
--- NOTE | 2021-07-21 10:39 | RAD ---
EXAM: Right knee, 3 views; left ankle, 3 views. HISTORY: Fall. COMPARISON: None. FINDINGS: Right knee: 3 views of the right knee are obtained. There is no fracture, dislocation or subluxation. There is no joint effusion. Left ankle: 3 views of the left ankle are obtained. There is no acute fracture, dislocation or sublux ation. There is a tiny ossicle or osseous excrescence along the inferior medial malleolus, likely dev elopmental or the sequela of remote injury. There is lateral predominant ankle soft tissue swelling. There is no ossicular lesion. IMPRESSION: 1. Lateral left ankle soft tissue swelling. No acute fracture is seen. 2. No acute finding involving the right knee. Electronically signed by: Sari Dias MD (07/21/2021 10:37 AM) [id number]
[2021-07-21 11:14] VITALS: BP 127/68
== END 2021-07-21 11:38 | disposition home or self-care (01) ==
LOC: ER 09:51
DX: S93.402A Sprain of unspecified ligament of left ankle, initial encounter (principal); S80.01XA Contusion of right knee, initial encounter; W01.0XXA Fall on same level from slipping, tripping and stumbling without subsequent striking against object, initial encounter; Y93.89 Activity, other specified; Y92.89 Other specified places as the place of occurrence of the external cause; Y99.8 Other external cause status
CPT/HCPCS: 73562; 73610; 99284; A6450